=== PATIENT | male | born 1950 | race Caucasian/White ===

== ENCOUNTER → 2017-06-06 | Outpatient (CLI) | payer OTHER ==
[~2017-06-06] MED LIST: ACID1GRA3 PO; AMLO10TA2 PO; FINA5TAB4 PO; METO50TA82 PO; METR500T PO; RIVA15TA PO; TAMS-11 PO
== END | disposition home or self-care (01) ==
LOC: CVU 11:46
PROVIDERS: ATTEND Internal Medicine Cardiovascular Disease
DX: I48.91 Unspecified atrial fibrillation (principal); I10 Essential (primary) hypertension
CPT/HCPCS: 93306

== ENCOUNTER 2017-06-23 07:52 | Day surgery (SDC) | payer OTHER ==
[~2017-06-23] VITALS: Ht 177.8 cm; Wt 79.5 kg
[2017-06-23] MEDS ORDERED: SODIUM CHLORIDE 0.9% 500 ML IV PRN (08:22)
[2017-06-23 08:23] VITALS: BP 149/100
[2017-06-23] MEDS ORDERED: AMLO10TA2 PO (08:32)
[2017-06-23] MEDS ORDERED: LOSA25TA5 PO (08:32)
[2017-06-23] MEDS ORDERED: RIVA20TA PO (08:32)
[2017-06-23] MEDS ORDERED: SIMV5TAB5 PO (08:32)
[2017-06-23] MEDS ORDERED: ASPI-621 PO (08:32)
[2017-06-23] MEDS ORDERED: METO-95 PO (08:32)
== END 2017-06-23 11:46 | disposition home or self-care (01) ==
LOC: CACL 07:52
PROVIDERS: ATTEND Internal Medicine Cardiovascular Disease
DX: I48.91 Unspecified atrial fibrillation (principal); I10 Essential (primary) hypertension; F41.9 Anxiety disorder, unspecified; F32.9 Major depressive disorder, single episode, unspecified; E78.2 Mixed hyperlipidemia; Z86.711 Personal history of pulmonary embolism; Z86.718 Personal history of other venous thrombosis and embolism; Z79.82 Long term (current) use of aspirin; Z88.8 Allergy status to other drugs, medicaments and biological substances
CPT/HCPCS: 92960; 93005

== ENCOUNTER 2018-11-10 08:46 | Outpatient (CLI) | payer MEDICARE ==
[~2018-11-10 08:46] MED LIST changes: -AMLO10TA2 PO; +AMLO10TA8 PO; +ASPI81TA45 PO; +LOSA25TA25 PO; +METO-95 PO; +RIVA20TA PO; +SIMV5TAB14 PO
[2018-11-10 09:23] LABS: BASOPHILS # (AUTO) 0.04 x10^3/uL (0-0.1); BASOPHILS % (AUTO) 1 % (0-1); EOSINOPHILS # (AUTO) 0.16 x10^3/uL (0-0.4); EOSINOPHILS % (AUTO) 2 % (1-7); LYMPHOCYTES # (AUTO) 1.44 x10^3/uL (1-3.4); LYMPHOCYTES % (AUTO) 20 % (22-44); MD NO; MEAN CORPUSCULAR HEMOGLOBIN 30.4 pg (27.5-34.5); MEAN CORPUSCULAR VOLUME 89.5 fL (81-97); MEAN PLATELET VOLUME 8.4 fL (7.4-10.4); MONOCYTES # (AUTO) 0.31 x10^3/uL (0.2-0.8); MONOCYTES % (AUTO) 4 % (2-9); NEUTROPHILS # (AUTO) 5.45 x10^3/uL (1.8-6.8); NEUTROPHILS % (AUTO) 74 % (42-75); PLATELET COUNT 324 x10^3/uL (130-400); RED BLOOD COUNT 5.26 x10^6/uL (4.38-5.82); RED CELL DISTRIBUTION WIDTH 12.4 % (9.4-14.8)
[2018-11-10 09:34] LABS: ALANINE AMINOTRANSFERASE 21 U/L (12-78); ANION GAP 9 mmol/L (5-15); CALCIUM 9.1 mg/dL (8.5-10.1); CHLORIDE 104 mmol/L (98-107); CREATININE 1.41 mg/dL (0.7-1.3)
[2018-11-10 09:36] LABS: ALKALINE PHOSPHATASE 96 U/L (45-117); BILIRUBIN,TOTAL 0.6 mg/dL (0.2-1.0); TOTAL PROTEIN 8.6 g/dL (6.4-8.2)
== END 2018-11-10 23:59 | disposition home or self-care (01) ==
LOC: STAR 08:46
PROVIDERS: ATTEND Urology
DX: Z01.812 Encounter for preprocedural laboratory examination (principal); R33.9 Retention of urine, unspecified; R94.31 Abnormal electrocardiogram [ECG] [EKG]
CPT/HCPCS: 36415; 80053; 85025; 93005

== ENCOUNTER 2018-11-18 08:02 | Inpatient (IN) | payer MEDICARE, OTHER ==
[2018-11-10 09:15] VITALS: BP 157/95
[~2018-11-18] VITALS: Ht 180.3 cm; Wt 85.6 kg
[~2018-11-18 08:02] MED LIST changes: +LACTATED RINGERS 1,000 ML IV SCH; +PLEASE ENTER HEIGHT AND WEIGHT MC SCH
[2018-11-18 08:43] VITALS: BP 157/93
[2018-11-18] MEDS ORDERED: FENTANYL PF 250 MCG/5ML ONE (09:17)
[2018-11-18] MEDS ORDERED: MIDAZOLAM 1 MG/ML, 2ML ONE (09:17)
[2018-11-18] MEDS ORDERED: DEXAMETHASONE 4 MG/ML, 1ML ONE (09:33)
[2018-11-18] MEDS ORDERED: PROPOFOL 10 MG/ML, 20ML ONE (09:33)
[2018-11-18] MEDS ORDERED: CEFAZOLIN 1,000 MG ONE (09:33)
[2018-11-18] MEDS ORDERED: ONDANSETRON 2MG/ML, 2ML ONE (09:33)
[2018-11-18] MEDS ORDERED: ONDANSETRON ODT 8 MG PO PRN (10:00)
[2018-11-18] MEDS ORDERED: OXYcodone 5 MG/5 ML ORAL.SOL UDC PO PRN (10:00)
[2018-11-18] MEDS ORDERED: PROMETHAZINE 25 MG SUPP PR PRN (10:00)
[2018-11-18] MEDS ORDERED: METOPROLOL 1 MG/ML, 5ML IV PRN (10:00)
[2018-11-18] MEDS ORDERED: LABETALOL 5MG/ML, 20ML IV PRN (10:00)
[2018-11-18] MEDS ORDERED: FENTANYL PF 100 MCG/2ML IV PRN (10:00)
[2018-11-18] MEDS ORDERED: HYDROmorphone 2 MG/ML, 1ML IVPush PRN (10:00)
[2018-11-18] MEDS ORDERED: ONDANSETRON 2MG/ML, 2ML IV PRN ×2 (10:00→12:00)
[2018-11-18] MEDS ORDERED: hydrALAzine 20 MG/ML, 1ML IV PRN (10:00)
[2018-11-18] MEDS ORDERED: PROMETHAZINE 25 MG/ML, 1ML IV PRN (10:00)
[2018-11-18] MEDS ORDERED: ACETAMINOPHEN 325 MG TABLET PO PRN (10:00)
[2018-11-18] MEDS ORDERED: GENTAMICIN 80 MG/2 ML ONE (10:05)
[2018-11-18] MEDS ORDERED: PHENYLEPHRINE 10 MG/ML ONE (10:05)
[2018-11-18] MEDS ORDERED: CEFTRIAXONE 1,000 MG ONE (10:09)
[2018-11-18] MEDS ORDERED: LIDOCAINE-MPF 2% ,5ML ONE (10:33)
[2018-11-18] MEDS: D5%-LACTATED RINGERS 1,000 ML IV SCH ×2 (11:47→16:26)
[2018-11-18] MEDS ORDERED: HYDROcodone/APAP 5/325 TABLET PO PRN (12:00)
[2018-11-18] MEDS ORDERED: TEMAZEPAM 15 MG CAPSULE PO PRN (12:00)
[2018-11-18] MEDS ORDERED: OPIUM/BELLADONNA SUPP.RECT 16.2-30 MG PR PRN (12:00)
[2018-11-18] MEDS ORDERED: OXYcodone 5 MG/5 ML ORAL.SOL UDC ONE (12:00)
[2018-11-18 13:36] VITALS: BP 118/77
[2018-11-18] MEDS: CEFOXITIN 1,000 MG in DEXTROSE 5% 50 ML IVPB SCH (16:40)
[2018-11-18 20:20] VITALS: BP 131/77
[2018-11-18] MEDS ORDERED: LOSARTAN 25MG TABLET ONE (22:36)
[2018-11-18] MEDS: NITROFURANTOIN (MACROBID) 100 MG CAPSULE PO SCH (22:39)
[2018-11-18 23:48] VITALS: BP 137/78
[2018-11-19] MEDS: CEFOXITIN 1,000 MG in DEXTROSE 5% 50 ML IVPB SCH (02:34)
[2018-11-19] MEDS: D5%-LACTATED RINGERS 1,000 ML IV SCH (04:02)
[2018-11-19 04:49] VITALS: BP 137/84
[2018-11-19] MEDS ORDERED: METOPROLOL SUCCINATE 100 MG TAB.ER.24H PO SCH ×2 (06:00→09:00)
[2018-11-19 07:50] VITALS: BP 134/80
[2018-11-19] MEDS ORDERED: AMLODIPINE 10 MG TAB PO SCH ×2 (09:00)
[2018-11-19] MEDS ORDERED: LOSARTAN 25MG TABLET PO SCH ×3 (09:00→21:00)
[2018-11-19] MEDS: NITROFURANTOIN (MACROBID) 100 MG CAPSULE PO SCH (09:01)
== END 2018-11-19 12:38 | disposition home or self-care (01) | DRG 713 ==
LOC: OUT 08:02 → ORIP 11:47 → 4NOR 12:52 → DCLOUNGE 11-19 12:20
PROVIDERS: ADMIT Urology; ATTEND Urology
PROC: 0VB08ZZ Excision of Prostate, Via Natural or Artificial Opening Endoscopic (ICD-10-PCS; principal; 2018-11-18 10:00)
DX: N40.1 Benign prostatic hyperplasia with lower urinary tract symptoms (principal); N39.0 Urinary tract infection, site not specified; R33.8 Other retention of urine; I10 Essential (primary) hypertension; I48.91 Unspecified atrial fibrillation; Z79.899 Other long term (current) drug therapy
CPT/HCPCS: 36415; 82565; 85014; 85018; 88305; G0378; J0690; J0696; J1100; J2250; J2405; J2704; J3010; J0694; J1580; J2370; J7120; J7121